=== PATIENT | male | born 1945 | race Caucasian/White ===

== ENCOUNTER → 2021-12-29 | Outpatient (CLI) | payer OTHER ==
[~2021-12-29] MED LIST: FELDENE10 MG PO; Voltaren Gel 1 % TOP
== END ==
LOC: KOH-I 15:37
DX: R22.0 Localized swelling, mass and lump, head (principal); E04.2 Nontoxic multinodular goiter
CPT/HCPCS: 76536

== ENCOUNTER → 2022-01-07 | Outpatient (CLI) | payer OTHER | LOC: KOH-I 01-05 15:00 | DX: E04.1 Nontoxic single thyroid nodule (principal); E04.2 Nontoxic multinodular goiter | CPT/HCPCS: 76536 ==

== ENCOUNTER → 2022-02-01 | Outpatient (CLI) | payer OTHER | LOC: CT 07:40 | DX: R59.1 Generalized enlarged lymph nodes (principal); E04.1 Nontoxic single thyroid nodule | CPT/HCPCS: 36415; 70491; 82565; 84520; Q9967 ==

== ENCOUNTER → 2022-02-23 | Outpatient (CLI) | payer OTHER | END | disposition home or self-care (01) | LOC: US 08:53 | DX: C82.11 Follicular lymphoma grade II, lymph nodes of head, face, and neck (principal) ==

== ENCOUNTER → 2022-03-15 | Outpatient (CLI) | payer OTHER ==
[2022-03-15 15:53] LABS: BUN/CREATININE RATIO 22 (0-10)
[2022-03-16 12:12] LABS: HBSAG SCREEN Negative (Negative); HCV AB <0.1 (0.0-0.9); HEP A AB, IGM Negative (Negative); HEP B CORE AB, IGM Negative (Negative)
[2022-03-17 07:21] LABS: BETA-2 MICROGLOBULIN, SERUM 1.7 mg/L (0.6-2.4)
== END ==
LOC: MO 11:00
PROVIDERS: Internal Medicine Hematology & Oncology
DX: C82.91 Follicular lymphoma, unspecified, lymph nodes of head, face, and neck (principal); Z79.899 Other long term (current) drug therapy
CPT/HCPCS: 80053; 80074; 82232; 83615; 84550; G0463